=== PATIENT | female | born 1995 | race Caucasian/White ===

== ENCOUNTER 2021-04-12 18:40 | Outpatient (CLI) | payer SELFPAY ==
--- NOTE | 2021-04-12 18:58 | USR_ITS ---
PROCEDURE INFORMATION: Exam: US , Limited Exam date and time: 04/12/2021 6:58 PM Age: 25 years old Clinical indication: Lmp or gestational age (in weeks): 29 week 1day; Antepartum complications; Other: Vag pain; ; Additional info: Vaginal pressure, gestational age, presentation, placenta location, ^cervical length TECHNIQUE: Imaging protocol: Real-time ultrasound of the maternal uterus with image documentation. Exam focused on the clinical indication. COMPARISON: No relevant prior studies available. FINDINGS: Gestation: Single intrauterine gestation. position: Breech position. heart rate: heart rate 150 bpm. Placenta: Posterior placenta. Negative for previa. Negative for abruption. Amniotic fluid: Amniotic fluid volume is subjectively adequate. BIOMETRY: Gestational age (AUA): The estimated gestational age based on the current biometry is 28 weeks, 6 days. The previously estimated gestational age is 29 weeks, 2 days. Estimated weight: Estimated weight is 1250 g; 40th percentile. MATERNAL: Cervix: Cervical length is estimated 4.77 cm measured transabdominally. Other findings: Biparietal diameter is 7.23 cm; 29th percentile. Head circumference is 26.68 cm; 13th percentile. Abdominal circumference is 23.77 cm; 13th percentile. Femur length is 5.52 cm; 30th percentile. US/US OB >= 14 weeks fetus [id number] IMPRESSION: 1. Single live breech position intrauterine gestation. 2. No acute abnormalities. 3. Grossly unremarkable growth pattern. biometry remains relatively concordant with previously estimated gestational age. 4. Unremarkable cervix. 5. Posterior placenta negative for placenta previa.
[2021-04-12 19:07] VITALS: BP 81/46; PULSE 88
[2021-04-12 19:08] VITALS: BMI 32.5
[2021-04-12 19:55] LABS: Bilirubin Urine Neg (Negative); Blood Urine Neg (Negative); Glucose Urine UA Norm (Normal); Ketones Urine 1+ (Negative); Leukocyte Esterase Urine Negative (Negative); Nitrate Urine Negative (Negative); Protein Urine Neg (Negative); Urine Appearance Clear (CLEAR); Urine Color Yellow (Yellow); Urobilinogen Urine Norm (Negative); pH Urine 8 (5-7)
[2021-04-12 19:57] LABS: Add Urine Culture? No; Bacteria Urine 2+ /hpf; RBC Urine 0-4 /hpf (0-2); Squamous Epithelial Cell Urine 15-25 /hpf (0-5); WBC Urine 0-4 /hpf (0-5)
[2021-04-12] MEDS: nitrofurantoin SR (BID) 100 mg Capsule PO (20:19)
[2021-04-12 20:32] LABS: Amphetamines Screen Urine Negative (Negative); Barbiturates Screen Urine Negative (Negative); Benzodiazepines Screen Urine Negative (Negative); Cocaine Screen Urine Negative (Negative); Opiate Screen Urine Negative (Negative); PCP Screen Urine Negative (Negative); THC Screen Urine Negative (Negative)
[2021-04-12 20:35] LABS: HIV 1 & 2 Antibody Non-Reactive (Non-Reactiv); HIV 1 & 2 Antigen Non-Reactive (Non-Reactiv)
[2021-04-12 20:38] LABS: Hepatitis B Surface Antigen Non-Reactive (Nonreactive); Rubella IgG 38.7 IU/mL (0.0-10.0)
[2021-04-12 20:41] LABS: Rapid Plasma Reagin Syphilis Nonreactive (Nonreactive)
== END 2021-04-12 20:20 | disposition home or self-care (01) ==
LOC: OPOB 18:41 → OBGYN 18:41
PROVIDERS: Obstetrics & Gynecology; Visit Provider Family Medicine
DX: O26.899 Other specified pregnancy related conditions, unspecified trimester (principal); Z3A.00 Weeks of gestation of pregnancy not specified; R10.2 Pelvic and perineal pain
CPT/HCPCS: 59025; 76805; 80306; 81001; 86592; 86762; 86850; 86900; 87340; 87491; 87591; 87806; 99211

== ENCOUNTER 2021-06-23 05:30 | Outpatient (CLI) | payer SELFPAY ==
[2021-06-23] MEDS: lactated ringers 1,000 ML 999 ML IV (06:30)
[2021-06-23] MEDS: metoclopramide 5 mg/mL SDV 2 mL 10 MG IVP (06:30)
[2021-06-23] MEDS: citric acid-sodium citrate 30 mL UDC PO (06:30)
[2021-06-23] MEDS: famotidine 20 mg/2 mL INJ IVP (06:31)
[2021-06-23 06:33] VITALS: RESP 15
--- NOTE | 2021-06-23 06:52 | ANES.PREANE2 ---
Pre-Anesthetic Assessment Pre-Anesthetic Assessment: Height/Weight: Height 1.57 m Weight 86.636 kg Resp 15 06/23/21 06:33 Preop Diagnosis: IUP Proposed Procedure: Operation Date: 06/23/21 07:30 Proposed Procedures p Section Repeat(Not Applicable) - Sara Marie MD Was Beta Donnell taken within 24 hours: N/A Was Clonidine taken within 24 hours: N/A Last intake: Intake Last Liquid Date 06/22/21 Last Liquid Time 21:00 Last Solid Date 06/22/21 Last Solid Time 21:00 Social: Social History: Tobacco and No alcohol Packs per day: .5 Exam: Pre-Anes Outpt Exam: alert, oriented x 3 and regular rate & rhythm Airway: Submandibular: WNL Cervical ROM: WNL MP: 2 Dentition: Loose (capped tooth on bottom left) History/ROS: No significant history except as noted Pulmonary: Pulmonary: None reported CV/HEM: CV/HEM: None reported : : None reported Hepatic: Hepatic: None reported GI: GI: GERD Metabolic: Metabolic: None reported Musc/skel: Musc/skel: Scoliosis Neuropsych: Neuropsych: None reported Anesthetic Plan: ASA status: 2 Anesthesia: Anesthesia Evaluation and Regional (specify below) (spinal) Risk of > 500 ml blood loss (7ml/kg in children): No Meds/Allergies Current Medications: Current Medications Generic Name Dose Route Start Last Admin Trade Name Freq PRN Reason Stop Dose Admin Lactated Ringer's 1,000 mls @ 999 m ls/hr 06/23/21 06:12 06/23/21 06:30 Lactated Ringers IV 06/23/21 07:12 999 mls/hr .Q1H1M ONE Administration PFSH Anesthesia PFSH: Medical History (Updated 05/19/21 @ 10:50 by Kassi Kingston) Psychiatric care Female Reproductive History: : 4 Data Anesthesia Cardiac Studies: No Data to Display
[2021-06-23 07:06] VITALS: BP 109/71; PULSE 86
[2021-06-23 07:20] VITALS: BP 109/71; PULSE 86; RESP 18; TEMP 36.9
--- NOTE | 2021-06-25 07:15 | P.ANESUD_ITS ---
Pre-Anesthetic Update Pre-Anesthetic Assessment: Date of Surgery/Procedure: 06/25/21 Preop Alisa gnosis: IUP Proposed Procedure: Operation Date: 06/25/21 07:30 Proposed Procedures p Section Repeat(Not Applicable) - Sara Marie MD Any changes to Pre-Anesthetic Assessment?: No Last Intake: Intake Last Liquid Date 06/22/21 Last Liquid Time 21:00 Last Solid Date 06/22/21 Last Solid Time 21:00 Vitals: Temperature 98.4 F 06/23/21 07:20 Pulse Rate 86 06/23/21 07:20 Pulse Rhythm 06/23/21 06:13 Pulse Strength 3+ Normal 06/23/21 06:13 Respiratory Rate 18 06/23/21 07:20 Respiratory Effort Non-Labored 06/23/21 06:13 Respiratory Depth Normal 06/23/21 06:13 Respiratory Patter n 06/23/21 06:13 Blood Pressure 109/71 06/23/21 07:20 Oxygen Delivery Me thod 06/23/21 06:13 Exam: Pre-Anes Outpt Exam: alert, oriented x 3, clear to auscultation bilaterally and regular rate & rhythm Cardiac Studies: No Data to Display
[2021-06-25 08:50] VITALS: BP 103/63; PULSE 64; RESP 16; O2SAT 100
[2021-06-25 08:55] VITALS: BP 112/73; PULSE 69; RESP 16; O2SAT 99
[2021-06-25 09:00] VITALS: BP 111/69; PULSE 69; RESP 16; O2SAT 100
[2021-06-25 09:05] VITALS: BP 101/64; PULSE 71; RESP 16; O2SAT 97
[2021-06-25 09:10] VITALS: BP 98/65; PULSE 66; RESP 16; O2SAT 98
[2021-06-25 09:15] VITALS: BP 103/77; PULSE 65; RESP 16; O2SAT 99
== END 2021-06-23 07:20 | disposition home or self-care (01) ==
LOC: OBGYN 11:02 → OPOB 06-24 13:31
PROVIDERS: Visit Provider Family Medicine
DX: O26.899 Other specified pregnancy related conditions, unspecified trimester (principal); Z3A.00 Weeks of gestation of pregnancy not specified
CPT/HCPCS: 36415; 59025; 99211; J2274; J2370; J2405; J2765; J3490

== ENCOUNTER 2021-06-25 05:38 | Inpatient (IN) | payer SELFPAY ==
[2021-06-25] VITALS (21 sets, daily range): BP systolic 94–134; BP diastolic 51–101; PULSE 55–90; RESP 16–18; TEMP 36.3–37.6; O2SAT 96–99; BMI 34.9
[2021-06-25] MEDS: lactated ringers 1,000 ML 999 ML IV ×2 (06:20→07:25)
[2021-06-25 06:23] LABS: Basophils % 0.3 %; Eosinophils # 0.2 10^3/uL (0.0-0.8); Eosinophils % 1.4 %; Hematocrit 30.1 % (37.0-47.0); Hemoglobin 10.2 g/dL (11.5-15.3); Lymphocytes # 2.2 10^3/uL (0.8-4.8); Lymphocytes % 17.6 %; Mean Corpuscular HGB Conc 33.9 g/dL (30.0-36.0); Mean Corpuscular Hemoglobin 29.3 pg (28.0-34.0); Mean Corpuscular Volume 86.5 fl (81-99); Mean Platelet Volume 10.4 fL (7.4-10.4); Monocytes # 0.7 10^3/uL (0.2-0.9); Monocytes % 5.5 %; Neutrophils # 9.23 10^3/uL (1.8-7.7); Nucleated Red Blood Cells % 0 %; Platelet Count 324 10^3/cmm (130-400); Red Blood Count 3.48 10^6/uL (4.1-5.3); Red Cell Distribution Width 14.7 % (12.1-15.1); White Blood Count 12.6 10^3/uL (4.0-10.0)
[2021-06-25 06:32] LABS: Amphetamines Screen Urine Negative (Negative); Barbiturates Screen Urine Negative (Negative); Benzodiazepines Screen Urine Negative (Negative); Cocaine Screen Urine Negative (Negative); Opiate Screen Urine Negative (Negative); PCP Screen Urine Negative (Negative); THC Screen Urine Negative (Negative)
[2021-06-25] MEDS: citric acid-sodium citrate 30 mL UDC PO (07:04)
[2021-06-25] MEDS: famotidine 20 mg/2 mL INJ IVP (07:04)
[2021-06-25] MEDS: metoclopramide 5 mg/mL SDV 2 mL 10 MG IVP (07:04)
--- NOTE | 2021-06-25 08:46 | PM.OP ---
Operative Report Date of procedure: June 25, 2021 Pre-op Diagnosis: Repeat section Post-op diagnosis: same Procedure Done: Repeat low transverse section Specimens removed/disposition: Vertex male Surgeon: Sara Marie MD Anesthesia: Other (spinal) Estimated blood loss (mL): 350 IV fluids (mL): 1,200 Urine output (mL): 100 Condition: stable Disposition: PACU Procedure: After informed consent the patient was taken to the OR where spinal anesthesia was administered. She was prepped and draped in normal sterile fashion in dorsal supine position with a left lateral tilt. A Pfannenstiel skin incision was made through the prior scar and carried through to the underlying layer of fascia sharply. The fascial incision was then extended laterally using the Mayos. The peritoneum was protruding through diastases recti and was adhered to the fascia. This was carefully dissected off. The fascia was grasped with Gracy clamps and the underlying rectus muscles were also dissected off. The peritoneum was then entered bluntly using fingers. The incision site was manually stretched. The bladder blade was inserted. The vesicouterine peritoneum was identified and entered sharply using the Metzenbaums. Bladder flap was then created digitally and the bladder blade was reinserted. Uterine incision was made in a transverse fashion in the lower uterine segment. Amniotic rupture of membranes was performed with an Allis clamp and copious amount of clear fluid was noted. was delivered atraumatically with bulb suction of the mouth and nares at delivery. The cord was clamped and cut and the infant was handed to the waiting pediatric team. The placenta was delivered using fundal pressure. The uterus was then exteriorized from the abdomen and a dry sponge was used to clear the uterus of clots and debris The uterine incision was then repaired using 0 chromic in a running locked fashion. A second layer of the same suture was used in an imbricating manner. There was a small linear abrasion to the uterine fundus that was coagulated using the Bovie. The uterus was then returned to the abdomen. Irrigation was used to clear the gutters of clots and debris and the uterine incision was reinspected for hemostasis. The small abrasion was also reinspected for hemostasis. The peritoneum was then reapproximated using 4-0 Vicryl in a running fashion. The subfascial tissue was inspected for hemostasis and the fascia was reapproximated using 0 Vicryl in a running fashion. The subcutaneous tissue was irrigated and any small bleeders were coagulated. The subcutaneous tissue was then reapproximated using 4-0 Vicryl in a running fashion. The skin was then reapproximated using 4-0 Vicryl on a Murali needle. Steri-Strips and a pressure bandage were applied patient went to recovery in good condition Sponge instrument and needle counts were correct.
--- NOTE | 2021-06-25 08:53 | PM.OPHPUD ---
Labor & Delivery H&P Update Date of Procedure: June 25, 2021 Date H&P Performed: 06/18/21 Admission Diagnosis: Preop diagnosis: Repeat section Related Problem List Diagnoses (1) with insufficient care: (2) Tobacco use during : (3) History of schizophrenia:
[2021-06-25] MEDS: diphenhydrAMINE 50 mg/mL SDV 1mL 25 MG IVP ×2 (09:49→17:43)
[2021-06-25] MEDS: HYDROcodone-acetaminophen 5-325 mg Tablet PO ×2 (12:43→21:24)
[2021-06-25] MEDS: sodium chloride 0.9% 500 ML 999 ML IV (14:25)
--- NOTE | 2021-06-25 15:02 | PC.NURSE ---
Pt reports she does not have custody of her other children. Her 6 year old is with her step mother in [place], her 4 year old is with her biological father on [place] and her 1 year old is under a legal guardianship and lives with [employer], who is a friend in [place]. Pt has plans to sign guardianship of this baby over to Geoff as well. Geoff has guardianship paperwork and POA paperwork. Geoff has hired a vendor specialist to view the guardianship case.
[2021-06-25] MEDS: ketorolac 30 mg/mL INJ IVP ×2 (15:12→21:24)
[2021-06-25] MEDS: dextrose 5%-lactated ringers 1,000 ML 125 ML IV ×2 (15:12→22:42)
[2021-06-25] MEDS: docusate sodium 100 mg Capsule PO (17:43)
[2021-06-25] MEDS: ferrous sulfate EC 325 mg Tablet PO (17:43)
[2021-06-26 00:33] LABS: Hematocrit 26.2 % (37.0-47.0); Hemoglobin 8.5 g/dL (11.5-15.3); Mean Corpuscular HGB Conc 32.4 g/dL (30.0-36.0); Mean Corpuscular Hemoglobin 29.1 pg (28.0-34.0); Mean Corpuscular Volume 89.7 fl (81-99); Mean Platelet Volume 10.5 fL (7.4-10.4); Platelet Count 303 10^3/cmm (130-400); Red Blood Count 2.92 10^6/uL (4.1-5.3); Red Cell Distribution Width 14.8 % (12.1-15.1); White Blood Count 17.5 10^3/uL (4.0-10.0)
[2021-06-26 03:30] VITALS: BP 106/71; PULSE 67; RESP 17; TEMP 36.8; O2SAT 98
[2021-06-26] MEDS: diphenhydrAMINE 50 mg/mL SDV 1mL 25 MG IVP (04:51)
[2021-06-26] MEDS: ketorolac 30 mg/mL INJ IVP (04:52)
[2021-06-26] MEDS: HYDROcodone-acetaminophen 5-325 mg Tablet PO ×3 (04:52→20:25)
[2021-06-26] MEDS: ferrous sulfate EC 325 mg Tablet PO ×2 (09:30→20:25)
[2021-06-26] MEDS: docusate sodium 100 mg Capsule PO ×2 (09:31→20:24)
[2021-06-26] MEDS: prenatal vitamin Capsule 1 CAP PO (09:31)
[2021-06-26 09:41] VITALS: BP 92/53; PULSE 85; RESP 16; TEMP 36.7; O2SAT 98
[2021-06-26] MEDS: hyDROXYzine 25 mg Capsule 50 MG PO ×2 (10:12→22:06)
[2021-06-26] MEDS: ibuprofen 800 mg tablet PO ×3 (10:13→20:24)
--- NOTE | 2021-06-26 14:19 | PM.PN ---
Subjective Subjective: Interval history: I feel like an elephant is sitting on me. Passing gas, ambulating, tolerating a regular diet, average vaginal bleeding. Vitals/I&O/Wt Last Vital Signs Temp 98.1 F 06/26/21 09:41 Pulse 85 06/26/21 09:41 Resp 16 06/26/21 09:41 BP 92/53 06/26/21 09:41 Pulse Ox 98 06/26/21 09:41 06/25/21 06/26/21 06/26/21 22:59 06:59 14:59 Intake Total 2437.5 / 3437.5 Output Total 1500 / 1850 400 / 400 Balance 937.5 / 1587.5 -400 / -400 Weight last 48 hrs Weight 86.636 kg Physical Exam Narrative: EXAM NARRATIVE: Lying in bed with , alert and oriented, no acute distress, abdomen is soft with appropriate postoperative tenderness. Incision is clean dry and intact with Steri-Strips present. There is no erythema or exudates. Extremities have no edema and no calf tenderness. Urinary Catheter Management^: Damon: Cath Placed During This Visit: yes, but has since been removed by the nurse Reason for Continuing Indwelling Catheter: Decision to DC Catheter Date Urinary Catheter Removed: 06/25/21 Time Urinary Catheter Discontinued: 22:30 Data : 06/26/21 00:20 A&P Assessment and plan (1) Status post repeat low transverse section: Postop day #1 doing well Status: Acute (2) History of schizophrenia: Status: Acute (3) Tobacco use during : Status: Acute (4) with insufficient care: Status: Acute (5) Custody issue: DFS here and in [place] are involved. Status: Acute Attestations Medical Necessity Statement*: Routine postoperative care Coding Level of Care Code Acute Psychiatric Secretary for Chg Fwd Diagnoses Status post repeat low transverse section Z98.891 History of schizophrenia Z86.59 Tobacco use during O99.330 with insufficient care O09.30 Custody issue Z65.3
--- NOTE | 2021-06-26 15:33 | PC.RESP ---
SMOKING CESSATION INFORMATION SENT TO PATIENT.
[2021-06-26 17:23] VITALS: BP 104/70; PULSE 88; RESP 16; TEMP 36.9; O2SAT 99
[2021-06-26 22:08] VITALS: BP 96/63; PULSE 85; RESP 16
[2021-06-27] MEDS: HYDROcodone-acetaminophen 5-325 mg Tablet PO ×3 (03:06→11:55)
[2021-06-27 04:49] VITALS: BP 103/70; PULSE 85
[2021-06-27] MEDS: docusate sodium 100 mg Capsule PO (07:13)
[2021-06-27] MEDS: ferrous sulfate EC 325 mg Tablet PO (07:14)
[2021-06-27] MEDS: prenatal vitamin Capsule 1 CAP PO (07:14)
[2021-06-27 07:27] VITALS: BP 104/69; PULSE 88; RESP 18; TEMP 36.8
--- NOTE | 2021-06-27 10:24 | P.DS_ITS ---
Discharge Providers CIVIL ENGINEERING TEACHER Date of Admission: 06/25/21 05:38 Date of Discharge: 06/27/21 Attending Provider at Admission: Sara Marie MD Attending Provider at Discharge: Sara Marie MD Diagnoses at Discharge Discharge Diagnosis (1) Status post repeat low transverse section: Status: Acute (2) History of schizophrenia: Status: Acute (3) Tobacco use during : Status: Acute (4) with insufficient care: Status: Acute (5) Custody issue: Status: Acute Reason for Visit Reason for Visit: CSECTION Hospital Course Hospital Course This is a 26-year-old G4 now P4 who was admitted for repeat section. She did well postoperatively. She was ambulating, tolerating a regular diet, had decreased vaginal bleeding and good pain control on oral medications. DFS was involved since the patient does not have guardianship of any of her other children and this will be placed with a guardian. Information Peripartum Data: Delivery Method: Physical Exam Narrative: EXAM NARRATIVE: Alert and oriented, heart regular rate and rhythm, lungs clear to auscultation bilaterally, abdomen is soft, fundus is firm and U- 2. Incision is clean dry and intact. Steri-Strips are clean and dry. No calf tenderness, no extremity edema Urinary Catheter Management^: Damon: Cath Placed During This Visit: yes, but has since been removed by the nurse Reason for Continuing Indwelling Catheter: Decision to DC Catheter Date Urinary Catheter Removed: 06/25/21 Time Urinary Catheter Discontinued: 22:30 Discharge Data Vitals: Last Vital Signs Temp 98.2 F 06/27/21 07:27 Pulse 88 06/27/21 07:27 Resp 18 06/27/21 07:27 BP 104/69 06/27/21 07:27 Pulse Ox 99 06/26/21 17:23 Discharge Plan Discharge Patient Disposition: Home Condition: Stable Prescriptions: New ibuprofen 800 mg Tablet 800 mg PO TID PRN (Reason: Abdominal Discomfort) Qty: 30 RF: 0 hydrocodone-acetaminophen 5-325 mg Tablet 1 - 2 tab PO Q4H PRN (Reason: Moderate To Severe Pain) Qty: 15 RF: 0 docusate sodium 100 mg Capsule 100 mg PO BID Qty: 60 RF: 0 No Action No Known Home Medications RF: 0 Discharge Orders: Discharge Order (Routine); Ordered 06/27/21 Ordered By: Sara Marie Referrals: Sara Marie MD [Physician] - 1 week Discharge Diet: Usual diet Discharge Activity: Limit activity as instructed Patient Instructions: Depression (DC), Bleeding (DC), Preeclampsia and Eclampsia After Delivery (GEN), OB - Migue/Frank, OB Discharge Report, OB Food/Drug Interaction Guide, Opioid Safety, OB Home Care Discharge Attestations CIVIL ENGINEERING TEACHER Time Spent in Discharge Care*: less than 30 min Coding Level of Care Code Acute Traffic Incident Management Manager for Chg Fwd Diagnoses Status post repeat low transverse section Z98.891 History of schizophrenia Z86.59 Tobacco use during O99.330 with insufficient care O09.30 Custody issue Z65.3
[2021-06-27] MEDS: ibuprofen 800 mg tablet PO (11:56)
[2021-06-27 12:00] VITALS: BP 117/79; PULSE 99; RESP 16; TEMP 36.8
[2021-06-27 12:30] VITALS: BP 117/79; PULSE 99; RESP 16; TEMP 36.8
== END 2021-06-27 12:30 | disposition home or self-care (01) | DRG 788 ==
PROVIDERS: Admitting Provider Family Medicine; Visit Provider Family Medicine
PROC: 10D00Z1 Extraction of Products of Conception, Low, Open Approach (ICD-10-PCS; CPT 59514; principal; 2021-06-25 07:30)
DX: O34.211 Maternal care for low transverse scar from previous cesarean delivery (principal); Z37.0 Single live birth; O99.334 Smoking (tobacco) complicating childbirth; Z65.3 Problems related to other legal circumstances; F20.9 Schizophrenia, unspecified; O99.344 Other mental disorders complicating childbirth; Z3A.39 39 weeks gestation of pregnancy
CPT/HCPCS: 36415; 59025; 80306; 85025; 85027; J0690; J1100; J1200; J1885; J2274; J2405; J2765; J3490; J7030; J7040

== ENCOUNTER 2022-03-26 22:48 | Emergency (ER) | payer SELFPAY ==
[2022-03-26 23:04] VITALS: BP 116/74; PULSE 80; RESP 18; TEMP 36.8; O2SAT 99; BMI 32.7
[2022-03-27 01:46] LABS: Basophils % 0.5 %; Eosinophils # 0.3 10^3/uL (0.0-0.8); Eosinophils % 3.9 %; Hematocrit 40.6 % (37.0-47.0); Hemoglobin 13.7 g/dL (11.5-15.3); Lymphocytes # 2.9 10^3/uL (0.8-4.8); Lymphocytes % 33.4 %; Mean Corpuscular HGB Conc 33.7 g/dL (30.0-36.0); Mean Corpuscular Hemoglobin 29.1 pg (28.0-34.0); Mean Corpuscular Volume 86.2 fl (81-99); Monocytes # 0.4 10^3/uL (0.2-0.9); Monocytes % 4.7 %; Neutrophils # 4.99 10^3/uL (1.8-7.7); Nucleated Red Blood Cells % 0 %; Platelet Count 451 10^3/cmm (130-400); Red Blood Count 4.71 10^6/uL (4.1-5.3); Red Cell Distribution Width 13.2 % (12.1-15.1); White Blood Count 8.7 10^3/uL (4.0-10.0)
[2022-03-27 02:21] LABS: Alanine Aminotransferase 15 U/L (0-33); Albumin Level 5.1 g/dL (3.5-5.2); Alkaline Phosphatase 89 IU/L (35-105); Anion Gap 20.9 (5-19); Aspartate Amino Transferase 16 U/L (0-32); Blood Urea Nitrogen 14 mg/dL (6-20); Calcium 10.1 mg/dL (8.5-10.5); Carbon Dioxide 19 mmol/L (22-29); Chloride 105 mmol/L (98-107); Globulin 3.2 g/dL (1.3-4.6); Glucose 73 mg/dL (65-115); Osmolality Calculated 291 mOsm/kg (285-295); Potassium 3.9 mmol/L (3.5-5.1); Sodium 141 mmol/L (136-145); Total Bilirubin 0.3 mg/dL (0.15-1.2); Total Protein 8.3 g/dL (6.6-8.7)
== END 2022-03-27 02:02 | disposition left against medical advice (07) ==
PROVIDERS: Emergency Medicine; Emergency Provider Family Medicine
DX: Z53.21 Procedure and treatment not carried out due to patient leaving prior to being seen by health care provider (principal)
CPT/HCPCS: 80053; 85025